=== PATIENT | male | born 2000 | race Hispanic/Latino ===

== ENCOUNTER 2021-11-17 09:40 | Emergency (ER) | payer OTHER ==
[~2021-11-17] VITALS: Ht 180.3 cm; Wt 98.0 kg
[2021-11-17 09:44] VITALS: BP 135/94
[2021-11-17] MEDS ORDERED: FLUT16H NS (12:28)
[2021-11-17] MEDS ORDERED: CETI10TA57 PO (12:28)
[2021-11-17] MEDS ORDERED: IBUP-2070 PO (12:28)
== END 2021-11-17 12:41 | disposition home or self-care (01) ==
LOC: EDH 09:40
DX: H92.03 Otalgia, bilateral (principal); Z98.890 Other specified postprocedural states